=== PATIENT | male | born 1965 | race Caucasian/White ===

== ENCOUNTER 2019-05-28 16:53 | Emergency (ER) | payer OTHER ==
--- NOTE | 2019-05-28 17:23 | EDM.PDOC ---
ED HPI GENERAL MEDICAL PROBLEM - General Chief Complaint: Back Pain or Injury Stated Complaint: BACK PAIN AND NUMB LT ARM Time Seen by Provider: 05/28/19 17:19 Source of Information: Reports: Patient - History of Present Illness INITIAL COMMENTS - FREE TEXT/NARRATIVE: HISTORY AND PHYSICAL: History of present illness: []Patient presents with back pain, in thoracic area, he has had pain symptoms for some time generally in the low back area he is on 800 mg of ibuprofen for this scheduled. He is seeing a local chiropractor which elected not to treat him, he is new to [facility] and does not have a primary care I can reproduce symptoms by pushing on muscles in the left trapezius distribution, he also complains of numbness in an ulnar distribution however no motor or sensory deficit is appreciated No fever nausea vomiting chills sweats no chest pain shortness breath headache dizziness palpitation no bowel or urine symptoms No injury or trauma recently He does add that he is recently been moving furniture Review of systems: As per history of present illness and below otherwise all systems reviewed and negative. Past medical history: As per history of present illness and as reviewed below otherwise noncontributory. Surgical history: As per history of present illness and as reviewed below otherwise noncontributory. Social history: No reported history of drug or alcohol abuse. Family history: As per history of present illness and as reviewed below otherwise noncontributory. Physical exam: HEENT: Atraumatic, normocephalic, pupils reactive, negative for conjunctival pallor or scleral icterus, mucous membranes moist, throat clear, neck supple, nontender, trachea midline. Lungs: Clear to auscultation, breath sounds equal bilaterally, chest nontender. Heart: S1S2, regular, negative for clicks, rubs, or JVD. Abdomen: Soft, nondistended, nontender. Negative for masses or hepatosplenomegaly. Negative for costovertebral tenderness. Pelvis: Stable nontender. Genitourinary: Deferred. Rectal: Deferred. Extremities: Atraumatic, negative for cords or calf pain. Neurovascular unremarkable. Neuro: Awake, alert, oriented. Cranial nerves II through XII unremarkable. Cerebellum unremarkable. Motor and sensory unremarkable throughout. Exam nonfocal. Diagnostics: [Clinical Patient offered ] plain film imaging, however he elects to follow with and establish with primary and consider MRI Therapeutics: [ and 10 you ibuprofen Tramadol as needed #30 no refill ] Impression: [ muscle spasm Acute on chronic back pain ] Definitive disposition and diagnosis as appropriate pending reevaluation and review of above. left neck Pain Score (Numeric/FACES): 10 - Related Data Allergies Allergy/AdvReac Type Severity Reaction Status Date / Time Penicillins Allergy Anaphylactic Verified 05/28/19 17:11 Shock Home Meds: Home Meds Ibuprofen [Ibu] 800 mg PO BID 05/28/19 [History] Lisinopril 40 mg PO DAILY 05/28/19 [History] cloNIDine [Catapres TTS-2] 0.2 mg PO BID 05/28/19 [History] metFORMIN [Glucophage] 1,000 mg PO BID 05/28/19 [History] Past Medical History HEENT History: Reports: None Cardiovascular History: Reports: Hypertension Respiratory History: Reports: None Gastrointestinal History: Reports: None Genitourinary History: Reports: None Musculoskeletal History: Reports: Back Pain, Chronic Neurological History: Reports: None Psychiatric History: Reports: None Endocrine/Metabolic History: Reports: Diabetes, Type II Hematologic History: Reports: None Immunologic History: Reports: None Oncologic (Cancer) History: Reports: None Dermatologic History: Reports: None - Past Surgical History Head Surgeries/Procedures: Reports: None HEENT Surgical History: Reports: None Cardiovascular Surgical History: Reports: None Respiratory Surgical History: Reports: None GI Surgical History: Reports: None Male Surgical History: Reports: None Endocrine Surgical History: Reports: None Neurological Surgical History: Reports: None Musculoskeletal Surgical History: Reports: Other (See Below) Other Musculoskeletal Surgeries/Procedures:: L4-4 fusion,. L5-S1 surgery Oncologic Surgical History: Reports: None Dermatological Surgical History: Reports: None Social & Family History - Family History Family Medical History: Noncontributory - Tobacco Use Smoking Status *Q: Current Every Day Smoker Years of Tobacco use: 30 Packs/Tins Daily: 0.5 - Caffeine Use Caffeine Use: Reports: Coffee, Soda - Recreational Drug Use Recreational Drug Use: No ED ROS GENERAL - Review of Systems Review Of Systems: See Below ED EXAM, GENERAL - Physical Exam Exam: See Below Course - Vital Signs Last Recorded V/S: Last Vital Signs Temp 97.0 F 05/28/19 17:09 Pulse 82 05/28/19 17:09 Resp 18 05/28/19 17:09 BP 133/76 09/21/19 17:09 Pulse Ox 99 05/28/19 17:09 Departure - Departure Time of Disposition: 17:22 Disposition: Home, Self-Care 01 Condition: Good Clinical Impression: Muscle spasm, Acute exacerbation of chronic low back pain - Discharge Information Referrals: PCP,Unknown [Primary Care Provider] - Additional Instructions: Medication as prescribed Return if symptoms persist or worsen ER referral to primary care in one week [facility] [address] [place] [id number] The following information is given to patients seen in the emergency department who are being discharged to home. This information is to outline your options for follow-up care. We provide all patients seen in our emergency department with a follow-up referral. The need for follow-up, as well as the timing and circumstances, are variable depending upon the specifics of your emergency department visit. If you don't have a primary care physician on staff, we will provide you with a referral. We always advise you to contact your personal physician following an emergency department visit to inform them of the circumstance of the visit and for follow-up with them and/or the need for any referrals to a consulting specialist. The emergency department will also refer you to a specialist when appropriate. This referral assures that you have the opportunity for follow-up care with a specialist. All of these measure are taken in an effort to provide you with optimal care, which includes your follow-up. Under all circumstances we always encourage you to contact your private physician who remains a resource for coordinating your care. When calling for follow-up care, please make the office aware that this follow-up is from your recent emergency room visit. If for any reason you are refused follow-up, please contact the [facility] emergency department at and asked to speak to the emergency department charge nurse.
== END 2019-05-28 17:30 | disposition home or self-care (01) ==
LOC: MW.ED 16:53
DX: M62.830 Muscle spasm of back (principal); G89.29 Other chronic pain; M54.5 Low back pain; F17.210 Nicotine dependence, cigarettes, uncomplicated; E11.9 Type 2 diabetes mellitus without complications; I10 Essential (primary) hypertension; Z79.84 Long term (current) use of oral hypoglycemic drugs; Z88.0 Allergy status to penicillin; Z79.899 Other long term (current) drug therapy
CPT/HCPCS: 99283

== ENCOUNTER 2019-06-12 18:39 | Emergency (ER) | payer OTHER ==
--- NOTE | 2019-06-12 18:57 | EDM.PDOC ---
ED HPI GENERAL MEDICAL PROBLEM - General Chief Complaint: Back Pain or Injury Stated Complaint: PAIN Time Seen by Provider: 06/12/19 18:40 Source of Information: Reports: Patient History Limitations: Reports: No Limitations - History of Present Illness INITIAL COMMENTS - FREE TEXT/NARRATIVE: HISTORY AND PHYSICAL: History of present illness: Patient is a 53-year-old male who presents to the emergency room with complaints of left mid back pain that radiates down his arm into his third, fourth and fifth fingers. He was seen in our emergency room last week and declined any imaging as he stated this was a chronic problem. He was given a prescription for tramadol (#30) and states this did not alleviate his discomfort. He was seen in [place] and had CT and was diagnosed with a muscular strain and radiculopathy. He was given a prescription for [place] and encouraged to follow-up with a neurosurgeon. He states that he is currently out of his [place] and would like a refill. He denies any new injury, trauma or falls. Patient denies any fever, chills, headache, change in vision, syncope or near syncope. Denies any chest pain, neck pain, shortness of breath or cough. Denies any abdominal pain, nausea, vomiting, diarrhea, constipation or dysuria. Has not noted any blood in urine or stool. Patient has been eating and drinking appropriately. Review of systems: As per history of present illness and below otherwise all systems reviewed and negative. Past medical history: As per history of present illness and as reviewed below otherwise noncontributory. Surgical history: As per history of present illness and as reviewed below otherwise noncontributory. Social history: See social history for further information Family history: As per history of present illness and as reviewed below otherwise noncontributory. Physical exam: General: Well-developed and well-nourished 53-year-old male. Alert and oriented. Nontoxic appearing and in no acute distress. HEENT: Atraumatic, normocephalic, pupils equal and reactive bilaterally, negative for conjunctival pallor or scleral icterus, mucous membranes moist, TMs normal bilaterally, throat clear, neck supple, nontender, trachea midline. No drooling or trismus noted. No meningeal signs. No hot potato voice noted. Lungs: Clear to auscultation, breath sounds equal bilaterally, chest nontender. Heart: S1S2, regular rate and rhythm without overt murmur Abdomen: Soft, nondistended, nontender. Negative for masses or hepatosplenomegaly. Negative for costovertebral tenderness. Pelvis: Stable nontender. C-spine/Back: No pinpoint vertebral tenderness upon palpation. No crepitus, step -offs or obvious deformities. To the left of the thoracic spine adjacent to the scapula he does have a pinpoint area of tenderness along the trapezius muscle which causes the pain to shoot down his arm. Patient is ambulatory into the emergency room without difficulty or deficit. Able to rock back on heels and walk on toes. Denies any urinary or fecal incontinence. Denies any numbness, tingling or saddle paresthesia. Skin: Intact, warm, dry. No lesions or rashes noted. Extremities: Atraumatic, moves all extremities per self without difficulty or deficits, negative for cords or calf pain. Neurovascular unremarkable. Neuro: Awake, alert, oriented. Cranial nerves II through XII unremarkable. Cerebellum unremarkable. Motor and sensory unremarkable throughout. Exam nonfocal. Notes: Patient refuses any further diagnostics. He is hoping that his pain medication will be refilled through the emergency room. I had a lengthy discussion with him about following up with primary care as he was directed week ago. Supportive care measures were reviewed and discussed. Voices understanding and is agreeable to plan of care. Denies any further questions or concerns at this time. Diagnostics: Refuses Therapeutics: Norflex, Toradol Prescription: Tylenol #3 Impression: Muscular strain Encounter for medication refill Encounter for pain management Plan: 1. The medication you received today does cause drowsiness, so do not drive for the remaining day 2. When resting please lay on a flat firm surface. Limit your immobility to prevent muscle stiffness. Get up to ambulate/move around/gentle stretching multiple times throughout the day. May alternate heat and ice to the painful areas 3. Tylenol/ibuprofen as needed for back pain. 4. You need to establish care with a primary care provider in [place]. He will not be getting further refills of your narcotic pain medication through the emergency room. 5. Please follow-up with your primary care provider as we discussed. Return to the ED as needed and as discussed. Definitive disposition and diagnosis as appropriate pending reevaluation and review of above. upper back Pain Score (Numeric/FACES): 10 - Related Data Allergies Allergy/AdvReac Type Severity Reaction Status Date / Time Penicillins Allergy Anaphylactic Verified 06/12/19 18:57 Shock Home Meds: Home Meds Ibuprofen [Ibu] 800 mg PO BID 05/28/19 [History] Lisinopril 40 mg PO DAILY 05/28/19 [History] cloNIDine [Catapres TTS-2] 0.2 mg PO BID 05/28/19 [History] metFORMIN [Glucophage] 1,000 mg PO BID 05/28/19 [History] Esomeprazole Magnesium [Nexium] 40 mg PO DAILY 06/12/19 [History] Past Medical History HEENT History: Reports: None Cardiovascular History: Reports: Hypertension Respiratory History: Reports: None Gastrointestinal History: Reports: None Genitourinary History: Reports: None Musculoskeletal History: Reports: Back Pain, Chronic Neurological History: Reports: None Psychiatric History: Reports: None Endocrine/Metabolic History: Reports: Diabetes, Type II Hematologic History: Reports: None Immunologic History: Reports: None Oncologic (Cancer) History: Reports: None Dermatologic History: Reports: None - Past Surgical History Head Surgeries/Procedures: Reports: None HEENT Surgical History: Reports: None Cardiovascular Surgical History: Reports: None Respiratory Surgical History: Reports: None GI Surgical History: Reports: None Male Surgical History: Reports: None Endocrine Surgical History: Reports: None Neurological Surgical History: Reports: None Musculoskeletal Surgical History: Reports: Other (See Below) Other Musculoskeletal Surgeries/Procedures:: L4-4 fusion,. L5-S1 surgery Oncologic Surgical History: Reports: None Dermatological Surgical History: Reports: None Social & Family History - Family History Family Medical History: Noncontributory - Caffeine Use Caffeine Use: Reports: Coffee, Soda ED ROS GENERAL - Review of Systems Review Of Systems: ROS reveals no pertinent complaints other than HPI. ED EXAM, UPPER BACK/NECK PAIN - Physical Exam Exam: See Below (See dictation) Course - Vital Signs Last Recorded V/S: Last Vital Signs Temp 97 F 06/12/19 18:50 Pulse 106 H 06/12/19 18:50 Resp 18 06/12/19 18:50 BP 151/99 H 06/12/19 18:50 Pulse Ox 97 06/12/19 18:50 - Orders/Labs/Meds Meds: Medications Discontinued Medications Generic Name Dose Route Start Last Admin Trade Name Freq PRN Reason Stop Dose Admin Methylprednisolone Sodium Succinate 125 mg 06/12/19 19:07 Solu-Medrol IM 06/12/19 19:08 ONETIME ONE Orphenadrine Citrate 60 mg 06/12/19 19:08 Norflex IM 06/12/19 19:09 NOW STA Departure - Departure Time of Disposition: 19:10 Disposition: Home, Self-Care 01 Clinical Impression: Muscle spasm, Encounter for pain management, Encounter for medication refill - Discharge Information Instructions: Muscle Cramps and Spasms, [id number] Forms: ED Department Discharge Additional Instructions: The following information is given to patients seen in the emergency department who are being discharged to home. This information is to outline your options for follow-up care. We provide all patients seen in our emergency department with a follow-up referral. The need for follow-up, as well as the timing and circumstances, are variable depending upon the specifics of your emergency department visit. If you don't have a primary care physician on staff, we will provide you with a referral. We always advise you to contact your personal physician following an emergency department visit to inform them of the circumstance of the visit and for follow-up with them and/or the need for any referrals to a consulting specialist. The emergency department will also refer you to a specialist when appropriate. This referral assures that you have the opportunity for follow-up care with a specialist. All of these measure are taken in an effort to provide you with optimal care, which includes your follow-up. Under all circumstances we always encourage you to contact your private physician who remains a resource for coordinating your care. When calling for follow-up care, please make the office aware that this follow-up is from your recent emergency room visit. If for any reason you are refused follow-up, please contact the [facility] Emergency Department at and asked to speak to the emergency department charge nurse. [facility] [address] [place] [address] [id number] [address] [id number] 1. The medication you received today does cause drowsiness, so do not drive for the remaining day 2. When resting please lay on a flat firm surface. Limit your immobility to prevent muscle stiffness. Get up to ambulate/move around/gentle stretching multiple times throughout the day. May alternate heat and ice to the painful areas 3. Tylenol/ibuprofen as needed for back pain. 4. You need to establish care with a primary care provider in [place]. He will not be getting further refills of your narcotic pain medication through the emergency room. 5. Please follow-up with your primary care provider as we discussed. Return to the ED as needed and as discussed.
[2019-06-12] MEDS ORDERED: methylPREDNISolone Sodium Succinate 125 MG/2 ML SDV IM ONE (19:07)
== END 2019-06-12 19:25 | disposition home or self-care (01) ==
LOC: MW.ED 18:39
DX: S29.012A Strain of muscle and tendon of back wall of thorax, initial encounter (principal); I10 Essential (primary) hypertension; E11.9 Type 2 diabetes mellitus without complications; Z79.84 Long term (current) use of oral hypoglycemic drugs; Z79.899 Other long term (current) drug therapy; Z88.0 Allergy status to penicillin; X58.XXXA Exposure to other specified factors, initial encounter
CPT/HCPCS: 96372; 99283; J2360; J2930

== ENCOUNTER 2019-06-22 15:26 | Emergency (ER) | payer OTHER ==
--- NOTE | 2019-06-22 16:28 | EDM.PDOC ---
ED HPI GENERAL MEDICAL PROBLEM - General Chief Complaint: Neuro Symptoms/Deficits Stated Complaint: BACK/ARM PAIN Time Seen by Provider: 06/22/19 16:27 Source of Information: Reports: Patient History Limitations: Reports: No Limitations - History of Present Illness INITIAL COMMENTS - FREE TEXT/NARRATIVE: HISTORY AND PHYSICAL: History of present illness: Patient is a 53-year-old male presents to the ED with complaint of mid back pain. He states he had a CT scan done in [place] that showed narrowing at C7. He has an appointment to see Dr. Garces, neurosurgeon at [facility], but was told he needs an MRI and a referral. He states he would like to have this done today. He denies injury or trauma to the area. He states pain and left arm numbness/tingling is not worsened since he last 2 previous ED visits. Informed patient that he needs to see a primary care provider for MRI and referral, he understands and states he does have an appointment this coming Thursday. Review of systems: As per history of present illness and below otherwise all systems reviewed and negative. Past medical history: As per history of present illness and as reviewed below otherwise noncontributory. Surgical history: As per history of present illness and as reviewed below otherwise noncontributory. Social history: No reported history of drug or alcohol abuse. Family history: As per history of present illness and as reviewed below otherwise noncontributory. Physical exam: General: Patient sitting comfortably in no acute distress and nontoxic appearing HEENT: Atraumatic, normocephalic, pupils reactive, negative for conjunctival pallor or scleral icterus, mucous membranes moist, throat clear, neck supple, nontender, trachea midline. No meningeal signs. Lungs: Clear to auscultation, breath sounds equal bilaterally, chest nontender. Heart: S1S2, regular, negative for clicks, rubs, or overt murmur. Abdomen: Soft, nondistended, nontender. Negative for masses or hepatosplenomegaly. Negative for costovertebral tenderness. No rigidity, rebound , guarding. Pelvis: Stable nontender. Genitourinary: Deferred. Rectal: Deferred. Spine: upper thoracic spinal tenderness to palpation Extremities: Atraumatic, negative for cords or calf pain. Neurovascular unremarkable. Neuro: Awake, alert, oriented. Cranial nerves II through XII unremarkable. Cerebellum unremarkable. Motor and sensory unremarkable throughout. Exam nonfocal. Notes: Diagnostics: none Therapeutics: [] Prescriptions: Tylenol #3 (#12) Impression: Thoracic back pain Plan: Take tylenol #3 as needed for severe pain Follow up with primary care provider Return to ED as needed as discussed Definitive disposition and diagnosis as appropriate pending reevaluation and review of above. Treatments BRICK TENDER: Reports: NSAIDS, Other (see below) Other Treatments BRICK TENDER: Lidocaine patch Left Arm Pain Score (Numeric/FACES): 8 - Related Data Allergies Allergy/AdvReac Type Severity Reaction Status Date / Time Penicillins Allergy Anaphylactic Verified 06/12/19 18:57 Shock Home Meds: Home Meds Ibuprofen [Ibu] 800 mg PO BID 05/28/19 [History] Lisinopril 40 mg PO DAILY 05/28/19 [History] cloNIDine [Catapres TTS-2] 0.2 mg PO BID 05/28/19 [History] metFORMIN [Glucophage] 1,000 mg PO BID 05/28/19 [History] Esomeprazole Magnesium [Nexium] 40 mg PO DAILY 06/12/19 [History] Lidocaine [Lidocaine Pain Relief] 1 bandage TRDERM DAILY 06/22/19 [History] Simvastatin [Zocor] 40 mg PO BEDTIME 06/22/19 [History] Past Medical History HEENT History: Reports: Impaired Vision Other HEENT History: wears glasses Cardiovascular History: Reports: Hypertension Respiratory History: Reports: Asthma Gastrointestinal History: Reports: None Genitourinary History: Reports: None Musculoskeletal History: Reports: Back Pain, Chronic Neurological History: Reports: None Other Neuro History: cervical radiculopathy Psychiatric History: Reports: None Endocrine/Metabolic History: Reports: Diabetes, Type II Hematologic History: Reports: None Immunologic History: Reports: None Oncologic (Cancer) History: Reports: None Dermatologic History: Reports: None - Infectious Disease History Infectious Disease History: Reports: Chicken Pox, Mumps - Past Surgical History Head Surgeries/Procedures: Reports: None HEENT Surgical History: Reports: None Cardiovascular Surgical History: Reports: None Respiratory Surgical History: Reports: None GI Surgical History: Reports: None Male Surgical History: Reports: None Endocrine Surgical History: Reports: None Neurological Surgical History: Reports: None Musculoskeletal Surgical History: Reports: Other (See Below) Other Musculoskeletal Surgeries/Procedures:: L4-4 fusion,. L5-S1 surgery Oncologic Surgical History: Reports: None Dermatological Surgical History: Reports: None Social & Family History - Family History Family Medical History: Noncontributory - Tobacco Use Smoking Status *Q: Current Every Day Smoker Years of Tobacco use: 32 Packs/Tins Daily: 1 - Caffeine Use Caffeine Use: Reports: Soda - Recreational Drug Use Recreational Drug Use: Yes Recreational Drug Type: Reports: Marijuana/Hashish Recreational Drug Use Frequency: Rarely ED ROS GENERAL - Review of Systems Review Of Systems: ROS reveals no pertinent complaints other than HPI. ED EXAM, NEURO - Physical Exam Exam: See Below (see dictation) Course - Vital Signs Last Recorded V/S: Last Vital Signs Temp 97.6 F 06/22/19 16:39 Pulse 66 06/22/19 16:39 Resp 18 06/22/19 16:39 BP 114/90 06/22/19 16:39 Pulse Ox 100 06/22/19 16:39 Departure - Departure Time of Disposition: 16:27 Disposition: Home, Self-Care 01 Condition: Good Clinical Impression: Thoracic back pain - Discharge Information Instructions: Acute Back Pain, Adult, Back Injury Prevention, [id number] Referrals: PCP,Unknown [Primary Care Provider] - Forms: ED Department Discharge Additional Instructions: The following information is given to patients seen in the emergency department who are being discharged to home. This information is to outline your options for follow-up care. We provide all patients seen in our emergency department with a follow-up referral. The need for follow-up, as well as the timing and circumstances, are variable depending upon the specifics of your emergency department visit. If you don't have a primary care physician on staff, we will provide you with a referral. We always advise you to contact your personal physician following an emergency department visit to inform them of the circumstance of the visit and for follow-up with them and/or the need for any referrals to a consulting specialist. The emergency department will also refer you to a specialist when appropriate. This referral assures that you have the opportunity for follow-up care with a specialist. All of these measure are taken in an effort to provide you with optimal care, which includes your follow-up. Under all circumstances we always encourage you to contact your private physician who remains a resource for coordinating your care. When calling for follow-up care, please make the office aware that this follow-up is from your recent emergency room visit. If for any reason you are refused follow-up, please contact the [facility] Emergency Department at and asked to speak to the emergency department charge nurse. [facility] [address] [place] [id number] [address] [address] Take tylenol #3 as needed for severe pain Follow up with primary care provider Return to ED as needed as discussed
== END 2019-06-22 16:39 | disposition home or self-care (01) ==
LOC: MW.ED 15:26
DX: M54.6 Pain in thoracic spine (principal); I10 Essential (primary) hypertension; E11.9 Type 2 diabetes mellitus without complications; F17.210 Nicotine dependence, cigarettes, uncomplicated; Z79.84 Long term (current) use of oral hypoglycemic drugs; Z88.0 Allergy status to penicillin; Z79.899 Other long term (current) drug therapy
CPT/HCPCS: 99283

== ENCOUNTER 2019-10-20 12:09 | Emergency (ER) | payer OTHER ==
--- NOTE | 2019-10-20 12:25 | EDM.PDOC ---
ED HPI GENERAL MEDICAL PROBLEM - General Chief Complaint: Gastrointestinal Problem Stated Complaint: VOMITING/DIZZY Time Seen by Provider: 10/20/19 12:24 Source of Information: Reports: Patient History Limitations: Reports: No Limitations - History of Present Illness INITIAL COMMENTS - FREE TEXT/NARRATIVE: Patient is a 54-year-old male who is complaining of feeling orthostatic and dizzy which started this morning and having severe pain and has left hip which is been chronic in nature and he usually treats with Tylenol with codeine but he is currently out of. Patient had asked his PCP to prescribe a different pain medicine because he feels Tylenol and codeine is "tearing up my stomach". Patient has been on different narcotics for the last 6 years for similar pain in his left hip. He denies any fever or chills but has been vomiting continuously since this morning. He states he does have a little abdominal pain prior to his emesis. He denies any dysuria or any hematuria. Patient denies any bloody or tarry stools or hematemesis. Onset: Today Duration: Getting Worse Location: Reports: Abdomen Quality: Reports: Ache, Dull Severity: Moderate Improves with: Reports: None Worsens with: Reports: Rest Associated Symptoms: Reports: Nausea/Vomiting Left Hip Pain Score (Numeric/FACES): 7 - Related Data Allergies Allergy/AdvReac Type Severity Reaction Status Date / Time Penicillins Allergy Anaphylactic Verified 10/20/19 12:21 Shock Home Meds: Home Meds Ibuprofen [Ibu] 800 mg PO BID 05/28/19 [History] Lisinopril 40 mg PO DAILY 05/28/19 [History] cloNIDine [Catapres TTS-2] 0.2 mg PO BID 05/28/19 [History] metFORMIN [Glucophage] 1,000 mg PO BID 05/28/19 [History] Esomeprazole Magnesium [Nexium] 40 mg PO DAILY 06/12/19 [History] Lidocaine [Lidocaine Pain Relief] 1 bandage TRDERM DAILY 06/22/19 [History] Acetaminophen with Codeine [Tylenol with Codeine #3 Tablet] 1 tab PO QID [History] Past Medical History HEENT History: Reports: Impaired Vision Other HEENT History: wears glasses Cardiovascular History: Reports: Hypertension Respiratory History: Reports: Asthma Gastrointestinal History: Reports: None Genitourinary History: Reports: None Musculoskeletal History: Reports: Back Pain, Chronic Neurological History: Reports: None Other Neuro History: cervical radiculopathy Psychiatric History: Reports: None Endocrine/Metabolic History: Reports: Diabetes, Type II Hematologic History: Reports: None Immunologic History: Reports: None Oncologic (Cancer) History: Reports: None Dermatologic History: Reports: None - Infectious Disease History Infectious Disease History: Reports: Chicken Pox, Mumps - Past Surgical History Head Surgeries/Procedures: Reports: None HEENT Surgical History: Reports: None Cardiovascular Surgical History: Reports: None Respiratory Surgical History: Reports: None GI Surgical History: Reports: None Male Surgical History: Reports: None Endocrine Surgical History: Reports: None Neurological Surgical History: Reports: None Musculoskeletal Surgical History: Reports: Other (See Below) Other Musculoskeletal Surgeries/Procedures:: L4-4 fusion,. L5-S1 surgery Oncologic Surgical History: Reports: None Dermatological Surgical History: Reports: None Social & Family History - Family History Family Medical History: Noncontributory - Caffeine Use Caffeine Use: Reports: Soda ED ROS GENERAL - Review of Systems Review Of Systems: Comprehensive ROS is negative, except as noted in HPI. ED EXAM, GI/ABD - Physical Exam Exam: See Below Text/Narrative:: Exam: See Below Exam Limited By: No Limitations Head: Atraumatic Neck: Normal Inspection. No: Carotid Bruit, Lymphadenopathy (R) Respiratory/Chest: No Respiratory Distress, Lungs Clear, Normal Breath Sounds, No Accessory Muscle Use. No: Chest Non-Tender Cardiovascular: Normal Peripheral Pulses, tachycardic Rate, Rhythm, No Edema, No JVD GI/Abdominal: Normal Bowel Sounds, nontender nondistended no masses. There is no rebound or guarding. Back Exam: Normal Inspection. No: CVA Tenderness (R)(L) Extremities: Normal Inspection. No: No Pedal Edema Neurological: Alert, Oriented, Normal Cognition Psychiatric: Normal Affect Skin Exam: Warm Lymphatic: No Adenopathy Course - Vital Signs Text/Narrative:: Patient's labs are unremarkable. He is feeling much better with 2 L IV fluids. Is also feeling better after the lorazepam. He is aware I will not give him any narcotic pain medicine for his chronic left hip pain. I will discharge him home with a few lorazepam in case he is having some narcotic withdrawal symptoms. Last Recorded V/S: Last Vital Signs Temp 36.0 C L 10/20/19 12:23 Pulse 72 10/20/19 15:46 Resp 16 10/20/19 15:46 BP 106/52 L 10/20/19 15:46 Pulse Ox 99 10/20/19 15:46 - Orders/Labs/Meds Orders: Active Orders 24 hr Category Date Time Status EKG 12 Lead [EKG Documentation Completion] [RC] ROUTINE Care 10/20/19 13:03 Active Sodium Chloride 0.9% [Normal Saline] 1,000 ml Med 10/20/19 15:28 Active IV .BOLUS Medication Orders Sodium Chloride (Normal Saline) 1,000 mls @ 999 mls/hr IV .BOLUS ONE Stop: 10/20/19 16:28 Last Admin: 10/20/19 15:43 Dose: 999 mls/hr Labs: Laboratory Tests 10/20/19 10/20/19 10/20/19 Range/Units 14:17 14:17 15:44 WBC 13.60 H (4.0-11.0) K/uL RBC 5.29 (4.50-5.90) M/uL Hgb 16.2 (13.0-17.0) g/dL Hct 47.5 (38.0-50.0) % MCV 89.8 (80.0-98.0) fL MCH 30.6 (27.0-32.0) pg MCHC 34.1 (31.0-37.0) g/dL RDW Std Deviation 46.2 (28.0-62.0) fl RDW Coeff of Melo 14 (11.0-15.0) % Plt Count 286 (150-400) K/uL MPV 10.40 (7.40-12.00) fL Add Manual Diff YES Neutrophils % (Manual) 55 (48.0-80.0) % Band Neutrophils % 22 % Lymphocytes % (Manual) 14 L (16.0-40.0) % Monocytes % (Manual) 8 (0.0-15.0) % Eosinophils % (Manual) 1 (0.0-7.0) % Nucleated RBC % 0.0 /100WBC Absolute Seg Neuts 7.5 H (1.4-5.7) Band Neutrophils # 3.0 Lymphocytes # (Manual) 1.9 (0.6-2.4) Monocytes # (Manual) 1.1 H (0.0-0.8) Eosinophils # (Manual) 0.1 (0.0-0.7) Nucleated RBCs # 0 K/uL Vacuolated Monocytes FEW Sodium 138 (136-148) mmol/L Potassium 4.9 (3.5-5.1) mmol/L Chloride 105 (98-107) mmol/L Carbon Dioxide 23.3 (21.0-32.0) mmol/L BUN 23 H (7.0-18.0) mg/dL Creatinine 1.0 (0.8-1.3) mg/dL Est Cr Clr Drug Dosing 78.95 mL/min Estimated GFR (MDRD) > 60.0 ml/min Glucose 113 H (74-106) mg/dL Calcium 8.6 (8.5-10.1) mg/dL Total Bilirubin 0.6 (0.2-1.0) mg/dL AST 54 H (15-37) IU/L ALT 89 H (14-63) IU/L Alkaline Phosphatase 69 (46-116) U/L Total Protein 7.4 (6.4-8.2) g/dL Albumin 3.3 L (3.4-5.0) g/dL Globulin 4.1 H (2.6-4.0) g/dL Albumin/Globulin Ratio 0.8 L (0.9-1.6) Urine Color DARK YELLOW Urine Appearance CLEAR Urine pH 5.5 (5.0-8.0) Ur Specific [place] 1.025 (1.001-1.035) Urine Protein NEGATIVE (NEGATIVE) mg/dL Urine Glucose (UA) NEGATIVE (NEGATIVE) mg/dL Urine Ketones TRACE H (NEGATIVE) mg/dL Urine Occult Blood NEGATIVE (NEGATIVE) Urine Nitrite NEGATIVE (NEGATIVE) Urine Bilirubin NEGATIVE (NEGATIVE) Urine Urobilinogen 0.2 (<2.0) EU/dL Ur Leukocyte Esterase NEGATIVE (NEGATIVE) U Hyaline Cast (Auto) 5-10 (0-2/LPF) Urine RBC NONE SEEN (0-2/HPF) Urine WBC 0-2 (0-5/HPF) Ur Epithelial Cells RARE (NONE-FEW) Urine Bacteria RARE (NEGATIVE) Meds: Medications Generic Name Dose Route Start Last Admin Trade Name Freq PRN Reason Stop Dose Admin Sodium Chloride 1,000 mls @ 999 mls/hr 10/20/19 15:28 10/20/19 15:43 Normal Saline IV 10/20/19 16:28 999 mls/hr .BOLUS ONE Administration Discontinued Medications Generic Name Dose Route Start Last Admin Trade Name Michelle PRN Reason Stop Dose Admin Sodium Chloride 1,000 mls @ 999 mls/hr 10/20/19 12:32 10/20/19 13:01 Normal Saline IV 10/20/19 13:32 999 mls/hr .BOLUS ONE Administration Lorazepam 1 mg 10/20/19 12:32 10/20/19 13:03 Ativan PO 10/20/19 12:33 1 mg ONETIME ONE Administration Ondansetron HCl 4 mg 10/20/19 12:34 10/20/19 13:01 Zofran Odt PO 10/20/19 12:35 4 mg ONETIME ONE Administration Prednisone 60 mg 10/20/19 12:32 10/20/19 13:03 Prednisone PO 10/20/19 12:33 60 mg ONETIME ONE Administration Departure - Departure Time of Disposition: 16:29 Disposition: Home, Self-Care 01 Condition: Good Clinical Impression: Vomiting, Chronic left hip pain - Discharge Information Referrals: Chris Quinn MD [Primary Care Provider] - Forms: ED Department Discharge Additional Instructions: Take your on benzodiazepines as needed. Follow-up with your PCP for recheck as soon as possible. Return to emergency department if symptoms are worse. Phenergan as needed. Care Plan Goals: The following information is given to patients seen in the emergency department who are being discharged to home. This information is to outline your options for follow-up care. We provide all patients seen in our emergency department with a follow-up referral. The need for follow-up, as well as the timing and circumstances, are variable depending upon the specifics of your emergency department visit. If you don't have a primary care physician on staff, we will provide you with a referral. We always advise you to contact your personal physician following an emergency department visit to inform them of the circumstance of the visit and for follow-up with them and/or the need for any referrals to a consulting specialist. The emergency department will also refer you to a specialist when appropriate. This referral assures that you have the opportunity for follow-up care with a specialist. All of these measure are taken in an effort to provide you with optimal care, which includes your follow-up. Under all circumstances we always encourage you to contact your private physician who remains a resource for coordinating your care. When calling for follow-up care, please make the office aware that this follow-up is from your recent emergency room visit. If for any reason you are refused follow-up, please contact the [facility] Emergency Department at and asked to speak to the emergency department charge nurse. Sepsis Event Note - Focused Exam Vital Signs: Vital Signs Temp Pulse Resp BP Pulse Ox 10/20/19 15:46 72 16 106/52 L 99 10/20/19 14:32 86 18 100/55 L 96 10/20/19 13:04 106 H 16 141/82 H 100 10/20/19 12:23 36.0 C L 103 H 22 H 122/84 100 Date Exam was Performed: 10/20/19 Time Exam was Performed: 16:25 - My Orders Last 24 Hours: My Active Orders 10/20/19 13:03 EKG 12 Lead [EKG Documentation Completion] [RC] ROUTINE 10/20/19 15:28 Sodium Chloride 0.9% [Normal Saline] 1,000 ml IV .BOLUS - Assessment/Plan Last 24 Hours: My Active Orders 10/20/19 13:03 EKG 12 Lead [EKG Documentation Completion] [RC] ROUTINE 10/20/19 15:28 Sodium Chloride 0.9% [Normal Saline] 1,000 ml IV .BOLUS
[2019-10-20] MEDS ORDERED: LORazepam 1 MG Tab PO ONE (12:32)
[2019-10-20] MEDS ORDERED: Sodium Chloride 0.9% 1,000 ML IV ONE ×2 (12:32→15:28)
[2019-10-20] MEDS ORDERED: predniSONE 20 MG Tab PO ONE (12:32)
[2019-10-20] MEDS ORDERED: Ondansetron 4 MG Tab.DIS PO ONE (12:34)
[2019-10-20 14:49] LABS: BLOOD UREA NITROGEN,BUN 23 mg/dL (7.0-18.0); CARBON DIOXIDE,CO2 23.3 mmol/L (21.0-32.0); CHLORIDE,CL 105 mmol/L (98-107); GLUCOSE RANDOM 113 mg/dL (74-106); POTASSIUM,K 4.9 mmol/L (3.5-5.1); SODIUM,NA 138 mmol/L (136-148)
== END 2019-10-20 16:45 | disposition home or self-care (01) ==
LOC: MW.ED 12:09
DX: M25.552 Pain in left hip (principal); G89.29 Other chronic pain; R11.10 Vomiting, unspecified; I10 Essential (primary) hypertension; J45.909 Unspecified asthma, uncomplicated; E11.9 Type 2 diabetes mellitus without complications; Z88.0 Allergy status to penicillin; Z79.84 Long term (current) use of oral hypoglycemic drugs; Z79.899 Other long term (current) drug therapy
CPT/HCPCS: 80053; 81001; 85025; 93005; 96360; 96361; 99284; A9270; J7030; 99283